=== PATIENT | female | born 1990 | race Caucasian/White ===

== ENCOUNTER 2021-12-08 12:31 | Outpatient (CLI) | payer OTHER | END 2021-12-08 12:32 | disposition home or self-care (01) | LOC: CSHULT 12:31 | PROVIDERS: ATTEND Family Medicine | DX: O24.113 Pre-existing type 2 diabetes mellitus, in pregnancy, third trimester (principal); Z3A.29 29 weeks gestation of pregnancy; O36.5130 Maternal care for known or suspected placental insufficiency, third trimester, not applicable or unspecified | CPT/HCPCS: 76805 ==

== ENCOUNTER 2021-12-09 11:43 | Inpatient (IN) | payer OTHER ==
[2021-12-09] MEDS ORDERED: Promethazine HCl 25 MG/ML VIAL IM PRN (12:08)
[2021-12-09] MEDS ORDERED: Lorazepam 2 MG/ML VIAL SLOW IVP PRN (12:08)
[2021-12-09] MEDS ORDERED: Ondansetron PF 4 MG/2 ML Vial IVP PRN (12:08)
[2021-12-09] MEDS ORDERED: hydrALAZINE 20 MG/ML VIAL SLOW IVP PRN ×2 (12:08)
[2021-12-09] MEDS ORDERED: Calcium Gluc 4.6 MEQ/10 ML (100 MG/ML) SLOW IVP PRN (12:08)
[2021-12-09] MEDS ORDERED: Labetalol HCl 100 MG/20 ML VIAL SLOW IVP PRN (12:08)
[2021-12-09] MEDS: Magnesium Sulfate 20 gm/500 ml 20 GM/500 ML BAG IVPB SCH ×2 (13:56→22:13)
[2021-12-09 13:57] LABS: Hemoglobin 12.6 g/dL (12.0-15.5); Mean Corpuscular HGB CONC 33.6 g/dL (32.0-36.0); Mean Corpuscular Hemoglobin 26.7 pg (27.0-33.0); Mean Corpuscular Volume 79.4 fl (81.6-98.3); Mean Platelet Volume 11.4 fl (7.4-10.4); Platelet Count 240 10x3/uL (150-450); RBC Distribution Width 13.7 % (11.5-14.5); Red Blood Cell (RBC) Count 4.72 10x6/uL (3.90-5.03); White Blood Cell (WBC) Count 11.3 10x3/uL (3.5-10.5)
[2021-12-09 14:13] LABS: ALT (SGPT) 9 U/L (8-55); AST (SGOT) 15 U/L (5-34); Albumin 3.2 g/dL (3.5-5.0); Alkaline Phosphatase 106 U/L (40-110); Anion Gap 14 mmol/L (10-20); BUN (Urea Nitrogen) 9 mg/dL (7.0-18.7); Bilirubin, Total 0.5 mg/dL (0.2-1.2); Calc. Creatinine Clearance 0 mL/min (70-130); Calcium 8.9 mg/dL (7.8-10.44); Carbon Dioxide 19 mmol/L (22-29); Chloride 104 mmol/L (98-107); Estimated GFR 117; Glucose 106 mg/dL (70-105); Potassium 3.7 mmol/L (3.5-5.1); Protein, Total 6.2 g/dL (6.0-8.3); Sodium 133 mmol/L (136-145)
[2021-12-09] MEDS: Lactated Ringer's 1,000 ML IV SCH (14:17)
[2021-12-09] MEDS: Betamet Acet/Betamet Na Ph 30 MG/5 ML VIAL IM SCH (14:17)
[2021-12-09 14:33] LABS: HBSAg Index 0.17 S/CO (0-0.99); HIV (1/2) Antibody/Antigen Non-Reactive (NonReactive); HIV 1/2 INDEX 0.09 S/CO (<1.00); Hep B Surf Ag Non-Reactive S/CO (NonReactive)
[2021-12-09 14:34] LABS: Syphilis Antibody Nonreactive (Nonreactive); Syphilis Antibody Index 0.02 S/CO (<1.00 Non-Reactive)
[2021-12-09 14:48] VITALS: BMI 57.2
[2021-12-09] MEDS ORDERED: Labetalol HCl 100 MG TAB PO SCH (15:00)
[2021-12-09] MEDS: Labetalol HCl 100 MG TAB PO SCH (16:23)
[2021-12-09 16:38] LABS: Creatinine, Urine 86.17 mg/dL (47-110)
[2021-12-09] MEDS ORDERED: Dextrose 5% in Water 1,000 ML IV PRN (19:05)
[2021-12-09] MEDS ORDERED: Dextrose 50% Abboject 50 ML SYRINGE SLOW IVP PRN (19:05)
[2021-12-09] MEDS: HumaLOG 300 UNITS/3 ML VIAL SC PRN ×2 (19:42→22:08)
[2021-12-09] MEDS: Labetalol HCl 100 MG/20 ML VIAL SLOW IVP PRN (20:54)
[2021-12-09] MEDS: Acetaminophen 500 MG TAB PO PRN (20:58)
[2021-12-09] MEDS: Lantus 1000 UNITS/10 ML VIAL SC SCH (20:59)
[2021-12-10] MEDS: HumaLOG 300 UNITS/3 ML VIAL SC PRN ×6 (01:59→21:03)
[2021-12-10] MEDS: Acetaminophen 500 MG TAB PO PRN ×3 (04:31→16:41)
[2021-12-10] MEDS ORDERED: Calcium Gluc 4.6 MEQ/10 ML (100 MG/ML) SLOW IVP PRN (04:39)
[2021-12-10] MEDS ORDERED: Lorazepam 2 MG/ML VIAL SLOW IVP PRN (04:39)
[2021-12-10] MEDS ORDERED: Labetalol HCl 100 MG/20 ML VIAL SLOW IVP PRN ×3 (04:39)
[2021-12-10] MEDS ORDERED: Labetalol HCl 100 MG/20 ML VIAL ONE (04:41)
[2021-12-10] MEDS: Labetalol HCl 100 MG/20 ML VIAL SLOW IVP PRN (04:42)
[2021-12-10] MEDS: Labetalol HCl 100 MG TAB PO SCH ×3 (06:02→21:03)
[2021-12-10] MEDS: Magnesium Sulfate 20 gm/500 ml 20 GM/500 ML BAG IVPB SCH ×2 (09:16→20:33)
[2021-12-10 12:52] LABS: SARS-CoV-2 NAA Rapid Test Not Detected (NotDetected)
[2021-12-10] MEDS: Betamet Acet/Betamet Na Ph 30 MG/5 ML VIAL IM SCH (15:16)
[2021-12-10] MEDS ORDERED: NIFEdipine 10 MG CAP ONE (16:39)
[2021-12-10] MEDS: hydrALAZINE 20 MG/ML VIAL SLOW IVP PRN ×2 (19:33→21:53)
[2021-12-10] MEDS: Fioricet 325/50/40 mg Tablet PO PRN (20:50)
[2021-12-10] MEDS: Lantus 1000 UNITS/10 ML VIAL SC SCH (21:00)
[2021-12-10] MEDS: NIFEdipine XL 30 MG TAB PO SCH (21:02)
[2021-12-11] MEDS: Fioricet 325/50/40 mg Tablet PO PRN (06:18)
[2021-12-11] MEDS: Magnesium Sulfate 20 gm/500 ml 20 GM/500 ML BAG IVPB SCH (08:18)
[2021-12-11] MEDS: Labetalol HCl 100 MG TAB PO SCH ×2 (08:40→19:24)
[2021-12-11] MEDS: HumaLOG 300 UNITS/3 ML VIAL SC PRN ×2 (09:21→16:08)
[2021-12-11] MEDS ORDERED: Famotidine/PF 20 mg/2ml Vial SLOW IVP PRN (11:24)
[2021-12-11] MEDS ORDERED: Bicitra 30 ML UDCUP PO PRN (11:24)
[2021-12-11] MEDS ORDERED: Azithromycin 500 MG in Sodium Chloride 0.9% 250 ML 250 ML IVPB SCH (11:30)
[2021-12-11] MEDS ORDERED: CEFAZOLIN 3 GM in Sodium Chloride 0.9% 100 ML IVPB SCH (11:30)
[2021-12-11] MEDS ORDERED: CEFAZOLIN 1 GM VIAL ONE (11:38)
[2021-12-11] MEDS ORDERED: Famotidine/PF 20 mg/2ml Vial ONE (11:39)
[2021-12-11] MEDS ORDERED: CEFAZOLIN 2 GM VIAL ONE (11:39)
[2021-12-11] MEDS ORDERED: Morphine PF 10 MG/10 ML VIAL ONE (12:02)
[2021-12-11] MEDS ORDERED: Fentanyl 100 MCG/2 ML VIAL ONE (12:02)
[2021-12-11] MEDS ORDERED: ePHEDrine Sulfate 50 MG/10 ML VIAL ONE (12:03)
[2021-12-11] MEDS ORDERED: Dexamethasone 4 mg/ml Vial ONE (12:03)
[2021-12-11] MEDS ORDERED: Oxytocin 10 UNITS/ML VIAL ONE ×3 (12:03→14:19)
[2021-12-11] MEDS ORDERED: Ondansetron PF 4 MG/2 ML Vial ONE (12:03)
[2021-12-11] MEDS ORDERED: PHENYLEPHRINE-NS 100 MCG/ML 10 ML SYRINGE ONE (12:03)
[2021-12-11] MEDS ORDERED: Lidocaine 1% (PF) 30 ML VIAL ONE (12:14)
[2021-12-11] MEDS ORDERED: Carboprost 250 MCG/ML AMP ONE (12:23)
[2021-12-11] MEDS ORDERED: Misoprostol 200 MCG TAB ONE (12:23)
[2021-12-11 12:37] LABS: Hemoglobin 12.1 g/dL (12.0-15.5); Mean Corpuscular Hemoglobin 26.9 pg (27.0-33.0); Mean Corpuscular Volume 79.3 fl (81.6-98.3); Mean Platelet Volume 10.5 fl (7.4-10.4); Platelet Count 325 10x3/uL (150-450); RBC Distribution Width 14.6 % (11.5-14.5); Red Blood Cell (RBC) Count 4.49 10x6/uL (3.90-5.03); White Blood Cell (WBC) Count 14.9 10x3/uL (3.5-10.5)
[2021-12-11 12:57] LABS: ALT (SGPT) 10 U/L (8-55); AST (SGOT) 16 U/L (5-34); Albumin 3.3 g/dL (3.5-5.0); Alkaline Phosphatase 97 U/L (40-110); Anion Gap 14 mmol/L (10-20); BUN (Urea Nitrogen) 12 mg/dL (7.0-18.7); Bilirubin, Total 0.4 mg/dL (0.2-1.2); Calc. Creatinine Clearance 239 mL/min (70-130); Calcium 7.4 mg/dL (7.8-10.44); Carbon Dioxide 18 mmol/L (22-29); Chloride 106 mmol/L (98-107); Estimated GFR 108; Globulin 2.8 g/dL (2.4-3.5); Glucose 177 mg/dL (70-105); Protein, Total 6.1 g/dL (6.0-8.3); Sodium 134 mmol/L (136-145)
[2021-12-11] MEDS ORDERED: Phenylephrine 40 MG/NS 250 ML 250 ML ONE (12:57)
[2021-12-11] MEDS ORDERED: Promethazine HCl 25 MG/ML VIAL ONE (13:26)
[2021-12-11] MEDS ORDERED: Ketorolac Tromethamine 30 MG/ML VIAL ONE (13:39)
[2021-12-11] MEDS ORDERED: Ondansetron PF 4 MG/2 ML Vial IVP PRN (14:38)
[2021-12-11] MEDS ORDERED: Naloxone HCl 0.4 mg/ml Vial IV PRN (14:38)
[2021-12-11] MEDS ORDERED: Fentanyl 100 MCG/2 ML VIAL SLOW IVP PRN (14:38)
[2021-12-11] MEDS ORDERED: Meperidine HCl/PF 25 MG/ML VIAL SLOW IVP PRN (14:38)
[2021-12-11] MEDS ORDERED: Moisturizing Cream (Eucerin) 113 GM JAR TOP PRN (14:38)
[2021-12-11] MEDS ORDERED: HYDROmorphone 2 MG/ML VIAL SLOW IVP PRN (14:38)
[2021-12-11] MEDS ORDERED: Naloxone HCl 0.4 mg/ml Vial IVP PRN ×2 (14:38)
[2021-12-11] MEDS ORDERED: Promethazine HCl 25 MG/ML VIAL IM PRN (14:38)
[2021-12-11] MEDS ORDERED: Ketorolac Tromethamine 30 MG/ML VIAL IVP PRN (14:38)
[2021-12-11] MEDS ORDERED: Promethazine HCl 25 MG SUPP PR PRN (14:38)
[2021-12-11] MEDS ORDERED: Ondansetron HCl/PF 4 MG/2 ML Vial IVP PRN (14:38)
[2021-12-11] MEDS ORDERED: Communication Order-Pharmacy FS SCH (14:45)
[2021-12-11] MEDS ORDERED: diphenhydrAMINE 50 MG/ML VIAL ONE (15:01)
[2021-12-11] MEDS: diphenhydrAMINE 50 MG/ML VIAL IVP PRN ×2 (15:08→22:17)
[2021-12-11] MEDS ORDERED: HumaLOG 300 UNITS/3 ML VIAL SC PRN (15:39)
[2021-12-11] MEDS ORDERED: Bisacodyl 10 MG SUPP PR PRN (17:53)
[2021-12-11] MEDS ORDERED: Simethicone Chewable 80 MG TAB PO PRN (17:53)
[2021-12-11] MEDS ORDERED: Lanolin Ointment 7 GM TUBE TOP PRN (17:53)
[2021-12-11] MEDS ORDERED: Boostrix 0.5 ML (Tdap) VIAL (>/=7 yrs of age) IM ONE (17:53)
[2021-12-11] MEDS ORDERED: Misoprostol 200 MCG TAB PR PRN (17:53)
[2021-12-11] MEDS ORDERED: Lactated Ringer's 500 ML IV SCH (18:00)
[2021-12-11] MEDS: hydrALAZINE 20 MG/ML VIAL SLOW IVP PRN ×2 (19:21→19:46)
[2021-12-11] MEDS: NIFEdipine XL 30 MG TAB PO SCH (19:25)
[2021-12-12] MEDS: HumaLOG 300 UNITS/3 ML VIAL SC PRN ×4 (00:05→18:00)
[2021-12-12] MEDS: hydrALAZINE 20 MG/ML VIAL SLOW IVP PRN (03:24)
[2021-12-12] MEDS ORDERED: hydrALAZINE 20 MG/ML VIAL ONE (03:27)
[2021-12-12 05:01] LABS: Hemoglobin 10.4 g/dL (12.0-15.5); Mean Corpuscular HGB CONC 33.4 g/dL (32.0-36.0); Mean Corpuscular Hemoglobin 26.7 pg (27.0-33.0); Mean Corpuscular Volume 79.7 fl (81.6-98.3); Platelet Count 276 10x3/uL (150-450); RBC Distribution Width 14.4 % (11.5-14.5); White Blood Cell (WBC) Count 17.7 10x3/uL (3.5-10.5)
[2021-12-12 05:16] LABS: ALT (SGPT) 11 U/L (8-55); AST (SGOT) 30 U/L (5-34); Albumin 2.9 g/dL (3.5-5.0); Alkaline Phosphatase 81 U/L (40-110); Anion Gap 15 mmol/L (10-20); BUN (Urea Nitrogen) 15 mg/dL (7.0-18.7); Bilirubin, Total 0.4 mg/dL (0.2-1.2); Calc. Creatinine Clearance 239 mL/min (70-130); Calcium 6.8 mg/dL (7.8-10.44); Carbon Dioxide 16 mmol/L (22-29); Chloride 106 mmol/L (98-107); Estimated GFR 108; Globulin 2.6 g/dL (2.4-3.5); Glucose 191 mg/dL (70-105); Magnesium 6.1 mg/dL (1.6-2.6); Potassium 4.8 mmol/L (3.5-5.1); Protein, Total 5.5 g/dL (6.0-8.3); Sodium 132 mmol/L (136-145)
[2021-12-12] MEDS: Magnesium Sulfate 20 gm/500 ml 20 GM/500 ML BAG IVPB SCH (05:54)
[2021-12-12] MEDS: Ferrous Sulfate 325 MG TAB PO SCH ×3 (06:31→20:59)
[2021-12-12] MEDS: Docusate 100 MG CAP PO SCH ×3 (06:31→20:56)
[2021-12-12] MEDS: Labetalol HCl 100 MG TAB PO SCH ×2 (09:08→20:55)
[2021-12-12] MEDS: Prenatal Vitamin 1 TAB PO SCH (09:08)
[2021-12-12] MEDS ORDERED: HYDROcodone/Acetaminophen 5/325 mg Tablet PO PRN (15:59)
[2021-12-12] MEDS: HYDROcodone/Acetaminophen 5/325 mg Tablet PO PRN (16:53)
[2021-12-12] MEDS: Lantus 1000 UNITS/10 ML VIAL SC SCH ×2 (17:58→21:14)
[2021-12-12] MEDS: Ibuprofen 800 MG TAB PO SCH (20:54)
[2021-12-12] MEDS: NIFEdipine XL 30 MG TAB PO SCH (20:55)
[2021-12-13] MEDS: Ibuprofen 800 MG TAB PO SCH ×3 (05:43→21:40)
[2021-12-13] MEDS: HumaLOG 300 UNITS/3 ML VIAL SC PRN ×3 (05:46→16:53)
[2021-12-13] MEDS: Ferrous Sulfate 325 MG TAB PO SCH ×2 (07:38→21:41)
[2021-12-13] MEDS: Prenatal Vitamin 1 TAB PO SCH (08:12)
[2021-12-13] MEDS: Labetalol HCl 100 MG TAB PO SCH (08:12)
[2021-12-13] MEDS: Docusate 100 MG CAP PO SCH ×2 (08:12→21:40)
[2021-12-13] MEDS: HYDROcodone/Acetaminophen 5/325 mg Tablet PO PRN ×3 (11:42→23:18)
[2021-12-13] MEDS: Lactated Ringer's 1,000 ML IV SCH (13:25)
[2021-12-13] MEDS: Labetalol HCl 200 MG TAB PO SCH ×2 (15:34→23:18)
[2021-12-13] MEDS: Lantus 1000 UNITS/10 ML VIAL SC SCH (21:40)
[2021-12-14] MEDS: Ibuprofen 800 MG TAB PO SCH ×3 (05:44→21:47)
[2021-12-14] MEDS: Docusate 100 MG CAP PO SCH ×2 (08:51→21:47)
[2021-12-14] MEDS: metFORMIN XR 500 MG TAB PO SCH (08:51)
[2021-12-14] MEDS: Prenatal Vitamin 1 TAB PO SCH (08:51)
[2021-12-14] MEDS: Labetalol HCl 200 MG TAB PO SCH ×2 (08:51→16:54)
[2021-12-14] MEDS ORDERED: Losartan Potassium 50 MG TAB PO SCH ×2 (09:00→12:45)
[2021-12-14] MEDS: Ferrous Sulfate 325 MG TAB PO SCH ×2 (09:07→21:49)
[2021-12-14] MEDS: Labetalol HCl 100 MG/20 ML VIAL SLOW IVP PRN ×2 (12:52→22:04)
[2021-12-14] MEDS: HYDROcodone/Acetaminophen 5/325 mg Tablet PO PRN (16:54)
[2021-12-14] MEDS: HumaLOG 300 UNITS/3 ML VIAL SC PRN ×2 (17:02→21:46)
[2021-12-14] MEDS: Lactated Ringer's 1,000 ML IV SCH ×2 (17:22→17:25)
[2021-12-14] MEDS: Lantus 1000 UNITS/10 ML VIAL SC SCH (21:46)
[2021-12-15] MEDS: Labetalol HCl 200 MG TAB PO SCH ×3 (00:11→16:13)
[2021-12-15] MEDS: HYDROcodone/Acetaminophen 5/325 mg Tablet PO PRN (04:20)
[2021-12-15] MEDS: Ibuprofen 800 MG TAB PO SCH ×3 (05:54→21:33)
[2021-12-15] MEDS: Losartan Potassium 50 MG TAB PO SCH (08:08)
[2021-12-15] MEDS: Prenatal Vitamin 1 TAB PO SCH (08:08)
[2021-12-15] MEDS: Ferrous Sulfate 325 MG TAB PO SCH ×2 (08:08→21:34)
[2021-12-15] MEDS: Docusate 100 MG CAP PO SCH ×2 (08:08→21:34)
[2021-12-15] MEDS: metFORMIN XR 500 MG TAB PO SCH (08:08)
[2021-12-15] MEDS ORDERED: Labetalol HCl 200 MG TAB PO SCH (13:00)
[2021-12-15] MEDS: HumaLOG 300 UNITS/3 ML VIAL SC PRN (16:17)
[2021-12-15] MEDS: Lantus 1000 UNITS/10 ML VIAL SC SCH (21:35)
[2021-12-16] MEDS: Labetalol HCl 200 MG TAB PO SCH ×4 (00:05→23:48)
[2021-12-16] MEDS: Ibuprofen 800 MG TAB PO SCH ×3 (05:55→21:53)
[2021-12-16] MEDS: Docusate 100 MG CAP PO SCH ×2 (07:57→21:52)
[2021-12-16] MEDS: Hydrochlorothiazide 25 MG TAB PO SCH (07:57)
[2021-12-16] MEDS: Losartan Potassium 50 MG TAB PO SCH (07:58)
[2021-12-16] MEDS: metFORMIN 500 MG TAB PO SCH ×2 (07:58→17:02)
[2021-12-16] MEDS: Prenatal Vitamin 1 TAB PO SCH (07:59)
[2021-12-16] MEDS: Ferrous Sulfate 325 MG TAB PO SCH ×2 (10:56→20:52)
[2021-12-16] MEDS: HumaLOG 300 UNITS/3 ML VIAL SC PRN (17:01)
[2021-12-16] MEDS: HYDROcodone/Acetaminophen 5/325 mg Tablet PO PRN (17:06)
[2021-12-16] MEDS: Lantus 1000 UNITS/10 ML VIAL SC SCH (21:55)
[2021-12-17] MEDS: Ibuprofen 800 MG TAB PO SCH ×2 (06:03→15:19)
[2021-12-17] MEDS: HumaLOG 300 UNITS/3 ML VIAL SC PRN (07:03)
[2021-12-17] MEDS: Labetalol HCl 200 MG TAB PO SCH ×2 (07:54→15:51)
[2021-12-17] MEDS: metFORMIN 500 MG TAB PO SCH (07:54)
[2021-12-17] MEDS: Ferrous Sulfate 325 MG TAB PO SCH (07:55)
[2021-12-17] MEDS: Losartan Potassium 50 MG TAB PO SCH (07:55)
[2021-12-17] MEDS: Prenatal Vitamin 1 TAB PO SCH (07:55)
[2021-12-17] MEDS: Docusate 100 MG CAP PO SCH (07:55)
[2021-12-17] MEDS: Hydrochlorothiazide 25 MG TAB PO SCH (07:55)
[2021-12-17 11:34] VITALS: BP 137/76; TEMP 98.2
== END 2021-12-17 17:40 | disposition home or self-care (01) | DRG 788 ==
LOC: CSHLD/OP 11:43 → CSHLD 19:39 → CSHPP 12-12 16:10
PROVIDERS: ADMIT Family Medicine; ATTEND Family Medicine
PROC: 10D00Z1 Extraction of Products of Conception, Low, Open Approach (ICD-10-PCS; principal; 2021-12-11)
DX: O14.14 Severe pre-eclampsia complicating childbirth (principal); Z20.822 Contact with and (suspected) exposure to COVID-19; Z3A.29 29 weeks gestation of pregnancy; Z37.0 Single live birth; O24.12 Pre-existing type 2 diabetes mellitus, in childbirth; E11.9 Type 2 diabetes mellitus without complications; O34.211 Maternal care for low transverse scar from previous cesarean delivery; E66.01 Morbid (severe) obesity due to excess calories; O99.214 Obesity complicating childbirth; Z79.4 Long term (current) use of insulin; O99.62 Diseases of the digestive system complicating childbirth; K66.0 Peritoneal adhesions (postprocedural) (postinfection)
CPT/HCPCS: 36415; 36416; 51702; 59025; 76805; 80053; 82570; 82805; 83735; 84156; 85027; 86762; 86780; 86850; 86900; 86901; 87340; 87389; 88300; 88307; J0360; J0702; J1100; J1200; J1815; J1885; J2274; J2405; J2550; J2590; J3010; J3475; J3490; S0028; U0002